=== PATIENT | female | born 1955 | race Caucasian/White ===

== ENCOUNTER → 2017-12-15 | Outpatient (CLI) | payer OTHER ==
--- NOTE | 2017-12-15 16:29 | Diagnostic Imaging Report ---
PROCEDURE: CT CHEST WITHOUT CONTRAST CT scan of the chest WITHOUT intravenous contrast, using standard protocol. TECHNIQUE: The chest was scanned utilizing a multidetector helical scanner from the apex to the level of the adrenal glands. No IV contrast was administered per physician's request. Coronal and sagittal multiplanar reformations were obtained. COMPARISON: None. INDICATIONS: SOB, MODERATE PERSISTENT ASTHMA FINDINGS: Lines/tubes: None. Lungs and Airways: Linear scarring and associated bronchiectasis in the right middle lobe (for example series 3, image 72). Linear opacity in the lingula, which may reflect subsegmental atelectasis or scarring (series 3, image 67). 2 mm pulmonary nodule in the posterolateral right lower lobe (series 3, image 78, and sagittal image 30). No other pulmonary nodules. No masses or consolidation. Airways are clear, without endobronchial lesions. Pleura: No effusion, or pneumothorax. Heart and mediastinum: Thyroid is unremarkable. Heart size is normal. No pericardial effusion. Aorta is non-aneurysmal. Main pulmonary artery is normal in caliber. Lymph nodes: No mediastinal, hilar, or axillary adenopathy. Abdomen: Limited views of the upper abdomen show no abnormality within the visualized liver, spleen, pancreas, or kidneys. The adrenal glands are unremarkable. Bones: No aggressive lytic lesion. No acute bony abnormality. 7 mm focal sclerotic nonaggressive appearing lesion in the right humeral head (series 2, image 5) likely representing a bone island. The soft tissues are unremarkable.. IMPRESSION: 1. linear scarring and associated bronchiectasis in the right middle lobe. No consolidation, other opacities or masses. 2. 2 mm pulmonary nodule in the posterolateral right lower lobe. If this is a low risk patient, no further followup is indicated given its small size, per Fleischner Society 2017 guidelines. Navin Cano M.D. Dictated by: Navin Cano M.D. on 12/15/2017 at 16:33 Electronically approved by: Navin Cano M.D. on 12/15/2017 at 16:33
== END ==
LOC: RESP 11:01
PROVIDERS: ATTEND Internal Medicine
DX: J45.40 Moderate persistent asthma, uncomplicated (principal)
CPT/HCPCS: 71250; 94060; 94727; 94729

== ENCOUNTER → 2019-03-15 | Outpatient (CLI) | payer OTHER ==
--- NOTE | 2019-03-15 10:25 | Diagnostic Imaging Report ---
CT of the chest, without contrast, 03/15/2019. History: Lung nodule follow-up. Comparison: 12/15/2017. Technique: Multidetector CT scanning of the chest was performed from the level of the thoracic inlet to the upper abdomen without IV or oral contrast. Dose reduction: The examination was performed according to departmental dose-optimization program which includes automated exposure control, adjustment of the mA and/or kV according to patient size and/or use of iterative reconstruction technique. Findings: Evaluation of the heart and mediastinal structures is limited secondary to lack of intravenous contrast. Visualized portions of the thyroid gland are within normal limits. There is no axillary, mediastinal, or hilar lymphadenopathy. The heart is within normal limits of size. There is no pericardial effusion. The thoracic aorta is of normal course and caliber. The trachea and central airways are clear. Unchanged 4 mm nodule, right lower lobe, axial image 46. Unchanged 2 mm, right lower lobe, axial image 76. Unchanged 4 mm nodule, left lower lobe, axial image 50 No new nodules identified. Stable linear scarring in the right middle lobe. There is no focal consolidation, pleural effusion, or pneumothorax. No acute osseous abnormalities are identified IMPRESSION: Unchanged pulmonary nodules. No new pulmonary nodules identified. No further follow-up imaging is recommended. Stable linear atelectasis/scarring in the right middle lobe Signed by: Peter Sousa MD on 03/15/2019 10:22 AM
== END ==
LOC: CT 09:06
PROVIDERS: ATTEND Internal Medicine
DX: R91.8 Other nonspecific abnormal finding of lung field (principal)
CPT/HCPCS: 71250